=== PATIENT | male | born 1955 | race Two or more races ===

== ENCOUNTER 2024-01-25 19:40 | Emergency (ER) | payer MEDICAID ==
[~2024-01-25] VITALS: Ht 172.7 cm; Wt 88.5 kg
[2024-01-25] MEDS ORDERED: IBUPROFEN 600 MG TABLET ONE (20:26)
[2024-01-25] MEDS: IBUPROFEN 600 MG TABLET PO ONE (20:29)
[2024-01-25] MEDS ORDERED: IBUP-1953 PO (20:58)
[2024-01-25 21:20] VITALS: BP 121/68; TEMP 97.8; O2SAT 98
== END 2024-01-25 21:07 | disposition home or self-care (01) ==
LOC: ER 19:47
DX: S46.911A Strain of unspecified muscle, fascia and tendon at shoulder and upper arm level, right arm, initial encounter (principal); W18.39XA Other fall on same level, initial encounter; Y93.89 Activity, other specified; Y92.89 Other specified places as the place of occurrence of the external cause; Y99.8 Other external cause status
CPT/HCPCS: 73030-TC